=== PATIENT | male | born 1965 | race Caucasian/White ===

== ENCOUNTER 2019-10-31 06:56 | Day surgery (SDC) | payer OTHER ==
[~2019-10-31 06:56] MED LIST: Lactated Ringers 1,000 ML IV SCH; Lidocaine 1%/Sod Bicarbonate in NS 8.4% 1 ML Syringe IDERM PRN; Sodium Chloride 0.9% 10 ML Syringe FLUSH PRN
[2019-10-31] MEDS ORDERED: Propofol 200 MG/20 ML SDV ONE ×3 (07:13→08:32)
[2019-10-31] MEDS ORDERED: Lidocaine 1% 4 ML ONE (07:14)
--- NOTE | 2019-10-31 07:26 | PCM.PREANE ---
Preanesthetic Assessment - Anesthesia/Transfusion/Family Hx Anesthesia History: Prior Anesthesia Without Reaction Family History of Anesthesia Reaction: No Transfusion History: No Prior Transfusion(s) - Review of Systems General: No Symptoms Pulmonary: No Symptoms Cardiovascular: No Symptoms Gastrointestinal: No Symptoms Neurological: No Symptoms Other: Reports: None - Physical Assessment NPO Status Date: 10/30/19 NPO Status Time: 23:00 ASA Class: 2 Mental Status: Alert & Oriented x3 Airway Class: Mallampati = 2 Dentition: Reports: Broken Tooth/Teeth (upper (L) front) Thyro-Mental Finger Breadths: 3 Mouth Opening Finger Breadths: 3 ROM/Head Extension: Full Lungs: Clear to Auscultation, Normal Respiratory Effort Cardiovascular: Regular Rate, Regular Rhythm - Allergies Allergies/Adverse Reactions: Allergies Allergy/AdvReac Type Severity Reaction Status Date / Time No Known Allergies Allergy Verified 10/28/19 12:44 - Acknowledgements Anesthesia Type Planned: MAC Pt an Appropriate Candidate for the Planned Anesthesia: Yes Alternatives and Risks of Anesthesia Discussed w Pt/Guardian: Yes Pt/Guardian Understands and Agrees with Anesthesia Plan: Yes PreAnesthesia Questionnaire HEENT History: Reports: Impaired Vision, Other (See Below) Other HEENT History: lower denture, wears glasses,contacts Cardiovascular History: Reports: None Respiratory History: Reports: Other (See Below) Other Respiratory History: snoring Gastrointestinal History: Reports: GERD, Other (See Below) Other Gastrointestinal History: gastric ulcers Genitourinary History: Reports: None MAID HOUSEKEEPER History: Reports: None Musculoskeletal History: Reports: Other (See Below) Other Musculoskeletal History: right finger fracture with surgery, compartment syndrome Neurological History: Reports: None Psychiatric History: Reports: None Endocrine/Metabolic History: Reports: Diabetes, Type II Hematologic History: Reports: None Immunologic History: Reports: None Oncologic (Cancer) History: Reports: None Dermatologic History: Reports: None - Past Surgical History Head Surgeries/Procedures: Reports: None Cardiovascular Surgical History: Reports: None Respiratory Surgical History: Reports: None GI Surgical History: Reports: EGD Female Surgical History: Reports: None Male Surgical History: Reports: None Endocrine Surgical History: Reports: None Neurological Surgical History: Reports: None Oncologic Surgical History: Reports: None Dermatological Surgical History: Reports: None - SUBSTANCE USE Smoking Status *Q: Never Smoker Days Per Week of Alcohol Use: 6 Number of Drinks Per Day: 2 Total Drinks Per Week: 12 Recreational Drug Use History: No - HOME MEDS Home Medications: Home Meds Ascorbic Acid [Vitamin C] 500 mg PO DAILY 10/28/19 [History] metFORMIN [Glucophage] 1,000 mg PO DAILY 10/28/19 [History] raNITIdine HCl [Zantac] 150 mg PO DAILY 10/28/19 [History] - CURRENT (IN HOUSE) MEDS Current Meds: Current Medications Lactated Ringer's (Ringers, Lactated) 1,000 mls @ 125 mls/hr IV ASDIRECTED TANIA Stop: 10/31/19 23:00 Lidocaine/Sodium Bicarbonate (Buffered Lidocaine 1% In Ns 8.4%) 0.25 ml IDERM ONETIME PRN PRN Reason: Prior to IV Start Stop: 10/31/19 18:00 Sodium Chloride (Saline Flush) 10 ml FLUSH ASDIRECTED PRN PRN Reason: Keep Vein Open Stop: 10/31/19 18:00 Discontinued Medications Lidocaine HCl (Xylocaine-Mpf 1%) Confirm Administered Dose 4 mls @ as directed .ROUTE .STK-MED ONE Stop: 10/31/19 07:15 Propofol (Diprivan 20 Ml) Confirm Administered Dose 200 mg .ROUTE .STK-MED ONE Stop: 10/31/19 07:14
[2019-10-31] MEDS ORDERED: fentaNYL 100 MCG/2 ML SDV ONE (07:33)
--- NOTE | 2019-10-31 08:46 | PCM48HPAN ---
Post Anesthesia Note - EVALUATION WITHIN 48HRS OF ANESTHETIC Vital Signs in Normal Range: Yes Patient Participated in Evaluation: Yes Respiratory Function Stable: Yes Airway Patent: Yes Cardiovascular Function Stable: Yes Hydration Status Stable: Yes Pain Control Satisfactory: Yes Nausea and Vomiting Control Satisfactory: Yes Mental Status Recovered: Yes Vital Signs: Last Vital Signs Temp 36.6 C 10/31/19 07:10 Pulse 99 10/31/19 07:10 Resp 16 10/31/19 07:10 BP 145/99 H 10/31/19 07:10 Pulse Ox 95 10/31/19 07:10
--- NOTE | 2019-10-31 09:15 | PROC ---
DATE OF OPERATION: 10/31/2019 SURGEON: Mae Lebron MD PREOPERATIVE DIAGNOSIS: History of gastric ulcers and need for screening colonoscopy. POSTOPERATIVE DIAGNOSES: 1. Mild gastritis. 2. Mild esophagitis. 3. Normal colon. OPERATION PERFORMED: 1. Esophagogastroduodenoscopy with biopsies. 2. Colonoscopy. ANESTHESIA: Monitored anesthesia care. COMPLICATIONS: None. INDICATIONS AND CONSENT: Mr. Fulton is a 54-year-old male who has a personal history of gastric ulcers on EGD about 4 years ago. The patient has been on H2 juan luis and intermittent PPI since that time, and his heartburn and left upper quadrant pain have since resolved. The patient was asked to have a followup EGD, but never had 1 until now. Continued to have mild reflux and heartburn, but no other abdominal pain. He has reached an age where a screening colonoscopy has been recommended. He reports no melena. No abdominal pain. No change in stool caliber. No family history of colon cancer. Therefore, an EGD and colonoscopy were recommended. Of note, the patient has family history of gastric cancer in father, but no other family members. EGD and colonoscopy were recommended. Risks, benefits, and alternatives were discussed. The patient agreed to proceed with the procedures and informed consent was obtained. DESCRIPTION OF PROCEDURE: The procedure the patient was taken to the procedure room, placed in left lateral decubitus position following induction of monitored anesthesia care. A time-out was performed and EGD was started. We inserted the scope to the mouth, went down to the stomach to the second portion of duodenum which was normal. The antrum appeared to be mildly erythematous, consistent with mild diffuse gastritis. Biopsies were taken for H pylori and histologic examination. On retroflexed views, there was no hiatal hernia. Cardia appeared normal. We withdrew scope to the GE junction. The Z-line appeared irregular. The GE junction was slightly edematous and mildly inflamed. Biopsies were taken here. Distal esophagus, mid and proximal esophagus appeared normal. At this point, air was suctioned from the stomach and EGD withdrawn. EBL was minimal. All biopsies were taken with cold forceps. Next, we proceeded with the colonoscopy. Perianal and digital rectal examination were normal. Scope was inserted all the way to the cecum. Appendiceal orifice and ileocecal valve were photographed, and scope was slowly withdrawn examining the entirety of colonic mucosa. Prep was excellent. There were no polyps. There was a small area of angiodysplasia at the splenic flexure that was nonbleeding, therefore it was left alone. On retroflexion of the rectum, this was normal. Therefore, air was suctioned out from the colon and colonoscopy was concluded. No immediate complications. The recommendation is for the patient to continue to take PPIs at this time or H2 blockers and repeat screening colonoscopy in 10 years. MMODAL /[id number] KENNY
== END 2019-10-31 09:20 | disposition home or self-care (01) ==
LOC: JD.SDS 06:56
PROVIDERS: ATTEND Surgery
DX: Z12.11 Encounter for screening for malignant neoplasm of colon (principal); K29.70 Gastritis, unspecified, without bleeding; K21.0 Gastro-esophageal reflux disease with esophagitis; K55.20 Angiodysplasia of colon without hemorrhage; E11.9 Type 2 diabetes mellitus without complications; Z87.19 Personal history of other diseases of the digestive system; Z80.0 Family history of malignant neoplasm of digestive organs; Z83.79 Family history of other diseases of the digestive system; Z98.890 Other specified postprocedural states; Z79.84 Long term (current) use of oral hypoglycemic drugs
CPT/HCPCS: 43239; 45378; J2001; J2704; J3010; J7120; 00813